=== PATIENT | male | born 1970 | race Caucasian/White ===

== ENCOUNTER 2017-02-25 07:29 | Emergency (ER) | payer OTHER ==
[~2017-02-25] VITALS: Ht 195.6 cm; Wt 100.0 kg
[2017-02-25] MEDS ORDERED: CYCLOBENZAPRINE HCL 10 MG TABLET PO ONE (07:45)
[2017-02-25] MEDS ORDERED: KETOROLAC TROMETHAMINE 60 MG/2 ML VIAL IM ONE (07:45)
[2017-02-25 08:15] VITALS: BP 142/81
== END 2017-02-25 08:17 | disposition home or self-care (01) ==
LOC: EMS 07:33
DX: M53.3 Sacrococcygeal disorders, not elsewhere classified (principal); M62.830 Muscle spasm of back
CPT/HCPCS: 96372; 99283; J1885

== ENCOUNTER 2020-08-12 12:05 | Emergency (ER) | payer OTHER ==
[~2020-08-12] VITALS: Ht 185.4 cm; Wt 81.8 kg
[2020-08-12 12:09] VITALS: BP 125/84
[2020-08-12 12:35] LABS: COVID AG,FIA SOURCE NASOPHARYNGEAL
== END 2020-08-12 12:10 | disposition home or self-care (01) ==
LOC: EMS 12:07
DX: Z20.828 Contact with and (suspected) exposure to other viral communicable diseases (principal)
CPT/HCPCS: 87426; 99283; U0003